=== PATIENT | male | born 1970 | race Caucasian/White ===

== ENCOUNTER 2017-04-02 07:10 | Emergency (ER) | payer OTHER ==
[2017-04-02 07:27] VITALS: TEMP 99; BMI 25.0
[2017-04-02] MEDS ORDERED: IBUPROFEN 400 MG TABLET (FP) PO ONE (08:33)
[2017-04-02] MEDS ORDERED: IBUPROFEN 600 MG TABLET (FP) PO ONE (08:40)
--- NOTE | 2017-04-02 08:41 | PDOC ---
History of Present Illness - General History Source: Patient Exam Limitations: No Limitations - History of Present Illness Initial Comments: 04/02/17 08:53 The patient is a 46 year old male with no significant PMH who presents to the emergency department via EMS with left knee pain after a slip and fall on ice this morning. The patient states he twisted his left knee and fell onto his left knee. The patient states he landed on the ground only on his left knee and did not sustain any other injuries. The patient denies headstrike or LOC. The patient is ambulating with discomfort and denies any motor or sensory deficits. The patient denies lightheadedness, dizziness, chest pain, shortness of breath, and headache. Denies fever, chills, nausea, vomit, diarrhea, and constipation. Allergies: NKA Past surgical history: None reported. Social history: No reported alcohol, cigarette, or drug use. <Alyssa Moran - Last Filed: 04/02/17 08:52> <Singh Oconnor - Last Filed: 04/02/17 09:47> - General Chief Complaint: Injury Stated Complaint: FALL Time Seen by Provider: 04/02/17 08:31 Past History <Alyssa Moran - Last Filed: 04/02/17 08:52> - Past Medical History COPD: No Other medical history: DENIES. - Suicide/Smoking/Psychosocial Hx Smoking History: Never smoked Information on smoking cessation initiated: No <Singh Oconnor - Last Filed: 04/02/17 09:47> - Past Medical History Allergies/Adverse Reactions: Allergies Allergy/AdvReac Type Severity Reaction Status Date / Time No Known Allergies Allergy Verified 04/02/17 07:23 Home Medications: Ambulatory Orders NK [No Known Home Medication] 04/02/17 Review of Systems - Review of Systems Constitutional: No: Chills, Fever Respiratory: No: Shortness of Breath Musculoskeletal: Yes: Joint Pain Neurological: No: Tingling, Weakness <Singh Oconnor - Last Filed: 04/02/17 09:47> *Physical Exam - Vital Signs Last Vital Signs Temp Pulse Resp BP Pulse Ox 99 F 60 16 141/80 98 04/02/17 07:24 04/02/17 07:24 04/02/17 07:24 04/02/17 07:24 04/02/17 07:24 - Physical Exam Comments: 04/02/17 08:54 GENERAL: The patient is awake, alert, and fully oriented, in no acute distress. HEAD: Normal with no signs of trauma. EYES: Pupils equal, round and reactive to light, extraocular movements intact, sclera anicteric, conjunctiva clear with no pallor. ENT: Ears normal, nares patent, oropharynx clear without exudates. Moist mucous membranes. NECK: Normal range of motion, supple without lymphadenopathy, JVD, or masses. LUNGS: Breath sounds equal, clear to auscultation bilaterally. No wheeze/ crackles. HEART: Regular rate and rhythm, normal S1 and S2 without murmur or rub. ABDOMEN: Soft/nontender/nondistended. BS wnl. No guarding or rebound. No palpable masses. No hepatosplenomegaly. EXTREMITIES: (+) No gross deformity or knee swelling. No bruising. No focal bony tenderness. Extensory mechanism intact. Slighted limited flexion secondary to discomfort. Neurovascularly intact distally. No clubbing or cyanosis. No cords, erythema, or tenderness. NEUROLOGICAL: Cranial nerves II through XII grossly intact. Normal speech, normal gait. PSYCH: Normal mood, normal affect. SKIN: Warm, Dry, normal turgor, no rashes or lesions noted. <Alyssa Moran - Last Filed: 04/02/17 08:52> - Vital Signs Last Vital Signs Temp Pulse Resp BP Pulse Ox 99 F 60 16 141/80 98 04/02/17 07:24 04/02/17 07:24 04/02/17 07:24 04/02/17 07:24 04/02/17 07:24 <Singh Oconnor - Last Filed: 04/02/17 09:47> ED Treatment Course - Medications Given in the ED: ED Medications Discontinued Medications Generic Name Dose Route Start Last Admin Trade Name Freq PRN Reason Stop Dose Admin Ibuprofen 800 mg 04/02/17 08:33 04/02/17 08:45 Motrin - PO 04/02/17 08:34 800 mg ONCE ONE Administration <Alyssa Moran - Last Filed: 04/02/17 08:52> - RADIOLOGY Radiology Studies Ordered: Category Date Time Status KNEE 2 POS-LEFT [RAD] Stat Radiology 04/02/17 08:33 Ordered <Singh Oconnor - Last Filed: 04/02/17 09:47> Medical Decision Making - Medical Decision Making 04/02/17 08:39 A portion of this note was documented by scribe services under my direction. I have reviewed the details of the note, within reason, and agree with the documentation with the following case summary and management plan written by me. 46-year-old male with no severe past medical history presents with left knee pain after slip and fall on ice this morning. Twisted his left knee and then landed on his left knee, no other injuries, ambulated with some discomfort, presents for evaluation. No motor or sensory deficit. Afebrile. Left lower extremity: No gross deformity or swelling or bruising, no focal bony tenderness, extensor mechanism is intact, slightly limited flexion secondary to discomfort, neurovascular intact distally. 46-year-old male with left knee sprain, rule out fracture. Neurovascular intact. No other injuries. Ibuprofen for pain Left knee x-ray Orthopedics follow-up, dispo accordingly 04/02/17 09:43 xray with effusion but no fracture. remains nvi. adams bandage, crutches prn, ortho f/u, return precautions. <Singh Oconnor - Last Filed: 04/02/17 09:47> *DC/Admit/Observation/Transfer - Attestations Scribe Attestion: 04/02/17 08:57 Documentation prepared by Alyssa Moran, acting as medical policy specialist for Singh Oconnor MD. <Alyssa Moran - Last Filed: 04/02/17 08:52> <iSngh Oconnor - Last Filed: 04/02/17 09:47> Diagnosis at time of Disposition: Left knee sprain Qualifiers: Encounter type: initial encounter Involved ligament of knee: unspecified ligament Qualified Code(s): S83.92XA - Sprain of unspecified site of left knee, initial encounter - Discharge Dispostion Disposition: HOME Condition at time of disposition: Stable - Referrals Referrals: Claudio Suarez MD [Staff Physician] - - Patient Instructions Printed Discharge Instructions: DI for Knee Sprain Additional Instructions: Activity as tolerated, use crutches as needed for support. Stay hydrated. Tylenol 1000 mg every 8 hours and/or ibuprofen 600 mg every 8 hours as needed for pain. Ice and elevate the affected areas for 20 minutes every 3-4 hours to reduce swelling. An x-ray shows no evidence of fracture or broken bone, but you likely have a sprain injury or knee. If symptoms persist, an MRI may be necessary to further evaluate the extent of injury. You should follow up with an orthopedic as soon as possible regarding today's emergency department visit. Consider calling Dr. Suarez or Dr. Colbert for an appointment. Return to the emergency department for any new or concerning symptoms, particularly intolerable pain, severe swelling or discoloration, numbness.
[2017-04-02 10:14] VITALS: BP 116/74; PULSE 55
== END 2017-04-02 10:14 | disposition home or self-care (01) ==
LOC: JER 07:10
DX: S83.8X2A Sprain of other specified parts of left knee, initial encounter (principal); W00.0XXA Fall on same level due to ice and snow, initial encounter; Y93.01 Activity, walking, marching and hiking; Y92.480 Sidewalk as the place of occurrence of the external cause; Y99.8 Other external cause status
CPT/HCPCS: 73560-TC-LT; 99282-25